=== PATIENT | female | born 1975 | race Two or more races ===

== ENCOUNTER 2024-08-01 18:24 | Emergency (ER) | payer BC, MEDICAID, OTHER ==
[~2024-08-01] VITALS: Ht 167.6 cm; Wt 131.0 kg
[2024-08-01 18:36] VITALS: BP 106/67; PULSE 81; RESP 17; TEMP 97.4; O2SAT 96
== END 2024-08-01 22:48 | disposition home or self-care (01) ==
LOC: ER 18:24
DX: S30.1XXA Contusion of abdominal wall, initial encounter (principal); W17.89XA Other fall from one level to another, initial encounter; Y93.89 Activity, other specified; Y92.89 Other specified places as the place of occurrence of the external cause; Y99.8 Other external cause status
CPT/HCPCS: 74176